=== PATIENT | male | born 1995 | race Caucasian/White ===

== ENCOUNTER 2019-02-27 21:00 | Emergency (ER) | payer BC, OTHER ==
[2019-02-27 21:06] VITALS: BP 123/73; PULSE 111; TEMP 98.3; BMI 21.1
[2019-02-27] MEDS ORDERED: IBUPROFEN 600 MG TABLET (FP) PO ONE ×2 (21:14→21:38)
--- NOTE | 2019-02-27 21:38 | PDOC ---
History of Present Illness - General Chief Complaint: Injury Stated Complaint: LT ANKLE PAIN Time Seen by Provider: 02/27/19 21:12 History Source: Patient Exam Limitations: No Limitations - History of Present Illness Initial Comments: 02/27/19 21:34 HISTORY OF PRESENT ILLNESS: 23-year-old male denies medical history presents emergency department for evaluation of left ankle pain status post inversion injury while playing basketball. Patient states he jumped up and when he landed he came down on his friend's foot causing his ankle to roll laterally. Patient felt a pop immediately. Patient was able to stand and take one to 2 steps before having increased pain. No recent travel or sick contacts. PAST MEDICAL HISTORY: Denies past medical history SURGICAL HISTORY: Denies ALLERGIES: No known drug allergies REVIEW OF SYSTEMS General/Constitutional: Denies fever or chills. Denies weakness, weight change. HEENT: Denies change in vision. Denies ear pain or discharge. Denies sore throat. Cardiovascular: Denies chest pain or shortness of breath. Respiratory: Denies cough, wheezing, or hemoptysis. Gastrointestinal: Denies nausea, vomiting, diarrhea or constipation. Denies rectal bleeding. Genitourinary: Denies dysuria, frequency, or change in urination. Musculoskeletal: see HPI Skin and breasts: Denies rash or easy bruising. Neurologic: Denies headache, vertigo, loss of consciousness, or loss of sensation. Psychiatric: Denies depression or anxiety. Endocrine: Denies increased thirst. Denies abnormal weight change. Hematologic/Lymphatic: Denies anemia, easy bleeding, or history of blood clots. Allergic/Immunologic: Denies hives or skin allergy. Denies latex allergy. PHYSICAL EXAM General Appearance: Well-appearing, appropriately dressed. No apparent distress , no intoxication. Respiratory/Chest: Lungs CTAB. No shortness of breath, chest tenderness, respiratory distress, accessory muscle use. No crackles, rales, rhonchi, stridor , wheezing, dullness Cardiovascular: RRR. S1, S2. No JVD, murmur, bradycardia, tachycardia. Vascular Pulses: Dorsalis-Pedis (R): 2+, Dorsalis-Pedis (L): 2+ Musculoskeletal/Extremities: Swelling and tenderness present over the left lateral malleolus. DP pulses 2+ bilaterally. No bony tenderness, crepitus, deformity present upon palpation to the bones of the ankle and foot. No tenderness upon palpation of the tibia and fibula at the level of the knee. Integumentary: Appropriate color, dry, warm. No cyanosis, erythema, jaundice or rash Neurologic: greenhouse or nursery transplanter II-XII intact. Fully oriented, alert. Appropriate mood/affect. Motor strength 5/5. No appreciable EOM palsy, facial droop or sensory deficit. Past History - Past Medical History Allergies/Adverse Reactions: Allergies Allergy/AdvReac Type Severity Reaction Status Date / Time No Known Allergies Allergy Verified 02/27/19 21:06 Home Medications: Ambulatory Orders No Home Medications 0 dose .ROUTE UTDICT 06/04/13 COPD: No Other medical history: denies - Immunization History Immunization Up to Date: Yes - Suicide/Smoking/Psychosocial Hx Smoking Status: No Smoking History: Former smoker Have you smoked in the past 12 months: No Information on smoking cessation initiated: No Hx Alcohol Use: Yes (social) Drug/Substance Use Hx: No *Physical Exam - Vital Signs Last Vital Signs Temp Pulse Resp BP Pulse Ox 98.3 F 111 H 20 123/73 99 02/27/19 21:04 02/27/19 21:04 02/27/19 21:04 02/27/19 21:04 02/27/19 21:04 ED Treatment Course - RADIOLOGY Radiology Studies Ordered: Category Date Time Status ANKLE & FOOT-LEFT* [RAD] Stat Radiology 02/27/19 21:14 Ordered Medical Decision Making - Medical Decision Making 02/27/19 21:33 A/P: 23-year-old male left ankle pain status post inversion of the right foot X-ray as read by me: No acute fractures or dislocations present. Mortise is intact. Soft tissue swelling present to the lateral aspect of the lateral malleolus. Motrin 600 mg orally now Aircast Christiano wrap Discharge home with orthopedic follow-up. *DC/Admit/Observation/Transfer Diagnosis at time of Disposition: Ankle pain, left Qualifiers: Chronicity: acute Qualified Code(s): M25.572 - Pain in left ankle and joints of left foot - Discharge Dispostion Disposition: HOME Condition at time of disposition: Fair Decision to Admit order: No - Referrals Referrals: Dillon Bustmaante DO [Staff Physician] - - Patient Instructions Additional Instructions: Rest. Take Tylenol or Motrin as needed for pain. Follow manufacturers instructions for appropriate dosage. Apply ice for 20 minutes and removed for at least 20 minutes before reapplying the ice. Keep Christiano wrap on your ankle as much as possible to help decrease some of the swelling control pain. Whenever possible keep her foot elevated to decrease swelling to your ankle. You've been given the number for an orthopedist. If symptoms do not resolve within the next 7 days call the orthopedist for further evaluation. Return to emergency department for discoloration of the foot, numbness or tingling to the foot, worsening pain, or any other concerns. Thank you very much for choosing us to provide your emergent healthcare needs. - Post Discharge Activity Forms/Work/School Notes: Back to Work
== END 2019-02-27 21:40 | disposition home or self-care (01) ==
LOC: JERFT 21:00
PROC: 2W3RX1Z Immobilization of Left Lower Leg using Splint (ICD-10-PCS; principal; 2019-02-27)
DX: M79.672 Pain in left foot (principal); X50.1XXA Overexertion from prolonged static or awkward postures, initial encounter; Y93.67 Activity, basketball; Y92.310 Basketball court as the place of occurrence of the external cause; Y99.8 Other external cause status
CPT/HCPCS: 73610-TC-LT-FY; 73630-TC-LT; 99281-25

== ENCOUNTER 2020-03-10 16:08 | Emergency (ER) | payer BC, OTHER ==
[2020-03-10] MEDS ORDERED: ONDANSETRON 4 MG/2 ML VIAL IVPUSH ONE (16:24)
[2020-03-10] MEDS ORDERED: SODIUM CHLORIDE 1,000 ML IV STA (16:24)
[2020-03-10] MEDS ORDERED: FAMOTIDINE 20 MG/50 ML IVPB 20 MG/50 ML MG IVPB ONE ×2 (16:24→17:06)
--- NOTE | 2020-03-10 16:24 | PDOC ---
Rapid Medical Evaluation Time Seen by Provider: 03/10/20 16:12 Medical Evaluation: Allergies Allergy/AdvReac Type Severity Reaction Status Date / Time No Known Allergies Allergy Verified 02/27/19 21:06 03/10/20 16:21 I performed a brief in-person evaluation of this patient. Pt is a 24 y/o male with has been vomiting for the last 3-4 days. He states he has not been able to keep liquids down either. No diarrhea. Pt does admit to smoking a lot of marijuana. Pertinent physical exam findings: slightly dry mucosa, speaking in full sentences I have ordered the following: saline lock, labs, fluids, zofran Patient to proceed to ED for further evaluation. Discharge Disposition - Diagnosis Vomiting - Referrals - Patient Instructions - Post Discharge Activity
[2020-03-10 16:31] VITALS: BP 137/84; PULSE 83; TEMP 98.9; BMI 22.4
[2020-03-10 17:37] LABS: BASO % 0.5 % (0-2.0); EOS % 0.4 % (0-4.5); HEMATOCRIT 47.3 % (35.4-49); HEMOGLOBIN 15.7 GM/dL (11.7-16.9); LYMPH % 10.2 % (8-40); MCH 28.7 pg (25.7-33.7); MCHC 33.3 g/dl (32.0-35.9); MEAN CELL VOLUME 86.2 fl (80-96); MEAN PLT VOLUME 8.3 fl (7.5-11.1); MONO % 8.2 % (3.8-10.2); NEUT % 80.7 % (42.8-82.8); PLATELET COUNT 412 K/MM3 (134-434); RBC 5.49 M/mm3 (4.00-5.60); RDW 14.7 % (11.9-15.9)
--- NOTE | 2020-03-10 17:37 | PDOC ---
History of Present Illness - General Chief Complaint: Nausea/Vomiting Stated Complaint: VOMITING Time Seen by Provider: 03/10/20 16:12 History Source: Patient Exam Limitations: No Limitations - History of Present Illness Initial Comments: 03/10/20 17:35 24-year-old male history of anxiety presents complaining of nausea vomiting x3 days, states he feels "like something stuck in my chest ". Admits to smoking daily marijuana, drinks daily however last alcohol drink was 2 days ago. Last bowel movement 2 days ago, patient is passing flatus. Denies diarrhea, fever, chills, chest pain, shortness of breath, urinary complaints, sick contacts, recent travel. ROS: as above PE: GENERAL: well-appearing, NAD HEAD: NCAT EYES: Pupils equal, round and reactive to light, sclera anicteric, conjunctiva clear ENT: pharynx: no erythema, no exudate, uvula midline NECK: supple CHEST: nontender RESP: clear, no w/r/r CARDIO: rrr, no m/g/r ABD: +BS, soft, nontender, non distended BACK: no midline spinal ttp, no CVAT EXTREMITIES: Normal range of motion, no edema NEUROLOGICAL: Normal speech, normal gait SKIN: Warm, Dry Is this a multiple visit Asthma Patient?: No Past History - Medical History Allergies/Adverse Reactions: Allergies Allergy/AdvReac Type Severity Reaction Status Date / Time No Known Allergies Allergy Verified 03/10/20 16:24 Home Medications: Ambulatory Orders No Home Medications 0 dose .ROUTE UTDICT 06/04/13 COPD: No - Immunization History Immunization Up to Date: Yes - Psycho-Social/Smoking History Smoking Status: No Smoking History: Never smoked Have you smoked in the past 12 months: No - Substance Abuse Hx (Audit-C & DAST Scrn) How often the patient has a drink containing alcohol: 2-4 times / month Score: In Men: 4 or > Positive; In Women: 3 or > Positive: 2 Screen Result (Pos requires Nsg. Audit-10AR): Negative In the last yr the pt used illegal drug/Rx for NonMed reason: Yes Score: Yes response is considered Positive: 1 Screen Result (Positive result requires Nsg. DAST-10): Positive *Physical Exam - Vital Signs Last Vital Signs Temp Pulse Resp BP Pulse Ox 98.9 F 83 18 137/84 99 03/10/20 16:25 03/10/20 16:25 03/10/20 16:25 03/10/20 16:25 03/10/20 16:25 ED Treatment Course - LABORATORY CBC & Chemistry Diagram: 03/10/20 17:15 03/10/20 17:15 - Medications Given in the ED: ED Medications Discontinued Medications Generic Name Dose Route Start Last Admin Trade Name Sorin PRN Reason Stop Dose Admin Sodium Chloride 1,000 mls @ 1,000 mls/hr 03/10/20 16:24 03/10/20 17:24 Normal Saline - IV 03/10/20 17:23 1,000 mls/hr ASDIR STA Administration Famotidine/Sodium Chloride 20 mg in 50 mls @ 100 mls/hr 03/10/20 16:24 03/10/20 17:24 Pepcid 20 Mg Premixed Ivpb - IVPB 03/10/20 16:53 100 mls/hr ONCE ONE Administration Ondansetron HCl 4 mg 03/10/20 16:24 03/10/20 17:24 Zofran Injection IVPUSH 03/10/20 16:25 4 mg ONCE ONE Administration Medical Decision Making - Medical Decision Making 03/10/20 17:36 24-year-old male history of anxiety presents complaining of nausea vomiting x3 days, states he feels "like something stuck in my chest ". Admits to smoking daily marijuana, drinks daily however last alcohol drink was 2 days ago. Last bowel movement 2 days ago, patient is passing flatus. Denies diarrhea, fever, chills, chest pain, shortness of breath, urinary complaints, sick contacts, recent travel. labs IVF antiemetic reassess 03/10/20 19:58 Labs reviewed Chest x-ray unremarkable wet read by me Patient feels better Tolerated p.o. Abdominal exam benign Advised patient to follow-up with PMD Advised patient to stop smoking marijuana Discharge - Discharge Information Problems reviewed: Yes Clinical Impression/Diagnosis: Vomiting Qualifiers: Vomiting type: unspecified Vomiting Intractability: unspecified Nausea pr esence: unspecified Qualified Code(s): R11.10 - Vomiting, unspecified Condition: Stable Disposition: HOME - Admission No - Follow up/Referral - Patient Discharge Instructions Additional Instructions: Remain hydrated Stop smoking marijuana Follow-up with your doctor within 1 week Return to the emergency room if you develop abdominal pain, fever, chills, abdominal distention or any concerning symptoms - Post Discharge Activity
[2020-03-10 17:41] LABS: PH,URINE 5.5 (5.0-8.0); URINE APPEARANCE CLEAR; URINE BILIRUBIN NEGATIVE (NEGATIVE); URINE COLOR YELLOW; URINE GLUCOSE (UA) NEGATIVE (NEGATIVE); URINE KETONE TRACE (NEGATIVE); URINE LEUK ESTERASE NEGATIVE (NEGATIVE); URINE NITRITE NEGATIVE (NEGATIVE); URINE PROTEIN TRACE (NEGATIVE); URINE UROBILINOGEN 0.2 mg/dL (0.2-1.0)
[2020-03-10 18:22] LABS: ALBUMIN 4.8 g/dl (3.4-5.0); BILIRUBIN,TOTAL 1.2 mg/dL (0.2-1); BLOOD UREA NITROGEN 8.2 mg/dL (7-18); CALCIUM 9.7 mg/dL (8.5-10.1); CREATININE 1.1 mg/dL (0.55-1.3); POTASSIUM 4.9 mmol/L (3.5-5.1); TOT PROT 9.2 g/dl (6.4-8.2)
== END 2020-03-10 20:14 | disposition home or self-care (01) ==
LOC: JER 16:08
PROC: 3E033NZ Introduction of Analgesics, Hypnotics, Sedatives into Peripheral Vein, Percutaneous Approach (ICD-10-PCS; principal; 2020-03-10)
PROC: 3E033GC Introduction of Other Therapeutic Substance into Peripheral Vein, Percutaneous Approach (ICD-10-PCS; 2020-03-10)
PROC: 3E0337Z Introduction of Electrolytic and Water Balance Substance into Peripheral Vein, Percutaneous Approach (ICD-10-PCS; 2020-03-10)
DX: R11.10 Vomiting, unspecified (principal)
CPT/HCPCS: 36415; 71046-TC-FY; 80053; 81003; 83690; 85025; 87086; 99285-25